=== PATIENT | female | born 1945 | race Caucasian/White ===

== ENCOUNTER 2022-05-28 06:49 | Day surgery (SDC) | payer MEDICARE ==
[~2022-05-28] VITALS: Ht 160 cm; Wt 99.8 kg
[~2022-05-28 06:49] MED LIST: ASPI81TA10 PO; ATO40T PO; AZEL0.054 EACHEYE; CALC-440 PO; CARV12.544 PO; CLOP75TA70 PO; FEBU40TA PO; FOLITAB19 PO; FURO20TA3 PO; LISI20TA28 PO; MULT-654 PO; PANT40T PO; POLY1DRO EACHEYE; POTA10TA32 PO
[2022-05-28] MEDS ORDERED: MIDAZOLAM HCL 2MG/2ML 2ml VIAL (1mg/ml) ONE (09:25)
[2022-05-28] MEDS ORDERED: HEPARIN SODIUM (PORCINE) 5000 UNITS/ML 1ML VIAL ONE (09:25)
[2022-05-28] MEDS ORDERED: SODIUM CHL 0.9% 0 ML ONE (09:25)
[2022-05-28] MEDS ORDERED: VERAPAMIL 2.5MG/ML INJ 2ML VIAL IV ONE (09:25)
[2022-05-28] MEDS ORDERED: ANGIOMAX 250 MG VIAL IV ONE (09:25)
[2022-05-28] MEDS ORDERED: fentaNYL CITRATE 100 MCG/2 ML VL ONE ×2 (09:25→09:28)
[2022-05-28] MEDS ORDERED: LIDOCAINE 2%HCL (LOCAL ANESTH.) INJ 10ml MDV ONE (09:26)
[2022-05-28] MEDS ORDERED: IODIXANOL 320MG/ML 100ML BTL IV ONE (09:35)
== END 2022-05-28 12:50 | disposition home or self-care (01) ==
LOC: CATH 06:49
PROVIDERS: ATTEND Internal Medicine Cardiovascular Disease
DX: R94.39 Abnormal result of other cardiovascular function study (principal); I25.10 Atherosclerotic heart disease of native coronary artery without angina pectoris; Z20.822 Contact with and (suspected) exposure to COVID-19
CPT/HCPCS: 93458; C1769; C1887; C1894; J1644; J2001; J2250; J3010; J7030; Q9967; U0003; 99152; 99153